=== PATIENT | female | born 2000 | race Caucasian/White ===

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

== ENCOUNTER → 2018-09-11 15:47 | Emergency (ER) | payer OTHER ==
[~2018-09-11 15:47] MED LIST: Cyclobenzaprine TAB* 10 MG PO ONE; Ketorolac INJ* 60 MG/2 ML VIAL IM ONE
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
[2018-09-11 18:29] VITALS: BP 103/73
== END | disposition home or self-care (01) ==
LOC: ED 15:47
DX: R51 Headache (principal); M54.2 Cervicalgia; M54.9 Dorsalgia, unspecified; V89.2XXA Person injured in unspecified motor-vehicle accident, traffic, initial encounter; Y92.9 Unspecified place or not applicable
CPT/HCPCS: 70450; 72110; 72125; 96372; 99282; A9270-GY; J1885